=== PATIENT | female | born 1975 | race Caucasian/White ===

== ENCOUNTER → 2016-11-05 | Outpatient (CLI) | payer BC ==
[~2016-11-05] MED LIST: BCPILLS PO; CLC100 PO; DRV100 PO; IBUP600T44 PO; PRENTAB26 PO; PROM25TA PO
--- NOTE | 2016-11-05 14:01 | MAMMOGRAPHY REPORT ---
UNILATERAL RIGHT DIGITAL DIAGNOSTIC MAMMOGRAM TOMOSYNTHESIS WITH CAD AND TARGETED RIGHT ULTRASOUND: 11/05/2016 CLINICAL HISTORY: 41-year-old woman presents for follow-up of an asymmetry in the medial posterior r ight breast. TECHNIQUE: Right CC and MLO 2-D digital and tomosynthesis images, spot compression right CC 2-D digi denny and tomosynthesis images were obtained. Current study was also evaluated with a Computer Aided Detection (CAD) system. COMPARISON: Comparison is made to exams dated: 05/07/2016 ultrasound, 05/07/2016 mammogram, 04/27/2016 mammogram, 04/26/2015 mammogram, and 05/29/2011 mammogram - [facility]. BREAST COMPOSITION: There are scattered areas of fibroglandular density in the right breast. FINDINGS: There are a few stable round coarse calcifications throughout the right breast. The asymm etry in the medial posterior right breast on the CC view is less conspicuous on the current exam and there is no definite evidence of a persistent mass on the tomosynthesis images. An additional spot compression view was performed in the medial right breast which demonstrates effacement of the asym metry and no definite persistent mass or architectural distortion. Further evaluation with ultrasou nd was performed in the medial right breast. No other suspicious mass, architectural distortion or s uspicious calcifications are seen elsewhere throughout the right breast. Targeted ultrasound was performed in the medial right breast. In the 3:00 axis, 7 cm from the nippl e, there is a small anechoic cystic appearing mass measuring 2.2 x 1.7 x 2.3 mm. A previously obser yeny probable cyst in the 3:00 right breast, 1 cm from the nipple has significantly decreased in size (this area is mislabeled 1:00 axis, 7 cm from the nipple, but is actually 3:00 axis, 1cm from the n ipple). The only remaining hypoechoic lesion measures 0.9 mm. Overall, no suspicious solid or cyst ic mass is identified in the medial right breast. IMPRESSION: ACR BI-RADS CATEGORY 2: BENIGN, TARGETED ULTRASOUND ACR BI-RADS CATEGORY 2: BENIGN There is effacement of the asymmetry in the medial posterior right breast, and no suspicious sonogra phic correlate. This could have represented a fluctuating cyst or resolving fat necrosis. Return t o annual mammogram screening schedule is recommended. The patient has been verbally notified of the results. Approximately 10% of breast cancers are not detected with mammography. A negative mammographic repor t should not delay biopsy if a clinically suggestive mass is present. Yajaira Mann M.D. ay/:11/05/2016 12:38:59 Server Developer: Mami TINOCO(Shaheed)(Heidi), [facility] letter sent: Normal 1/2 BI-RADS Code: ACR BI-RADS Category 2: Benign Ultrasound BI-RADS: ACR BI-RADS Category 2: Benign
== END | disposition home or self-care (01) ==
LOC: C.MAMM 08:35
PROVIDERS: ATTEND Obstetrics & Gynecology
DX: R92.8 Other abnormal and inconclusive findings on diagnostic imaging of breast (principal)

== ENCOUNTER → 2017-01-28 | Outpatient (CLI) | payer BC ==
[2017-01-28 15:04] LABS: URINE APPEARANCE CLEAR (CLEAR); URINE BILIRUBIN NEG (NEG); URINE COLOR DK YELLOW; URINE EPITHELIAL CELL AUTO >30 /lpf (0-5); URINE NITRITE NEG (NEG); URINE SPECIFIC GRAVITY 1.031 (1.000-1.030); UROBILINOGEN NEG (NEG); ZZUR CULT IF INDIC CLEAN CATCH NO
[2017-01-28 15:07] LABS: MANUAL MICROSCOPIC REQUIRED? NO; REVIEW REQ? NO
== END | disposition home or self-care (01) ==
LOC: C.LABSPEC 14:15
PROVIDERS: ATTEND Obstetrics & Gynecology
DX: R30.0 Dysuria (principal)

== ENCOUNTER → 2017-01-28 | Outpatient (CLI) | payer BC | END | disposition home or self-care (01) | LOC: C.PAPS 09:58 | PROVIDERS: ATTEND Obstetrics & Gynecology | DX: Z01.419 Encounter for gynecological examination (general) (routine) without abnormal findings (principal) ==

== ENCOUNTER → 2017-04-29 | Outpatient (CLI) | payer BC ==
--- NOTE | 2017-04-29 15:50 | MAMMOGRAPHY REPORT ---
BILATERAL DIGITAL SCREENING MAMMOGRAM TOMOSYNTHESIS WITH CAD: 04/29/2017 CLINICAL HISTORY: Routine screening. Patient has no complaints. TECHNIQUE: Breast tomosynthesis in addition to standard 2D mammography was performed. Current study was also evaluated with a Computer Aided Detection (CAD) system. COMPARISON: Comparison is made to exams dated: 11/05/2016 ultrasound, 11/05/2016 mammogram, 05/07/2016 ul trasound, 05/07/2016 mammogram, 04/27/2016 mammogram, and 04/26/2015 mammogram - [facility] enter. BREAST COMPOSITION: There are scattered areas of fibroglandular density in both breasts. FINDINGS: There are a few benign coarse and round microcalcifications in the breasts. Less prominent asymmetry in the superior posterior right breast on the MLO view, which is no longer seen on the CC view, confirming benignity. No new suspicious mass, architectural distortion or cluster of microcalc ifications is seen. IMPRESSION: ACR BI-RADS CATEGORY 1: NEGATIVE There is no mammographic evidence of malignancy. A 1 year screening mammogram is recommended. The pa tient will receive written notification of the results. Approximately 10% of breast cancers are not detected with mammography. A negative mammographic report should not delay biopsy if a clinically suggestive mass is present. Yajaira Mann M.D. ay/:04/29/2017 15:44:01 Dietetic Technician Registered: Amy TINOCO (R)(Heidi), [facility] letter sent: Normal 1/2 BI-RADS Code: ACR BI-RADS Category 1: Negative
== END | disposition home or self-care (01) ==
LOC: C.MAMM 13:09
PROVIDERS: ATTEND Obstetrics & Gynecology
DX: Z12.31 Encounter for screening mammogram for malignant neoplasm of breast (principal)